=== PATIENT | female | born 1970 | race Caucasian/White ===

== ENCOUNTER 2017-06-29 06:25 | Day surgery (SDC) | payer OTHER ==
[~2017-06-29 06:25] MED LIST: IRON1 TA1 PO
[2017-06-29] MEDS ORDERED: COLACE100 MG PO (09:42)
[2017-06-29] MEDS ORDERED: PERCOCET 5-3251 EACH PO (09:42)
== END 2017-06-29 15:35 | disposition home or self-care (01) ==
LOC: CIR.AMB 06:25
DX: K64.8 Other hemorrhoids (principal); K64.4 Residual hemorrhoidal skin tags

== ENCOUNTER → 2020-01-07 | Outpatient (CLI) | payer OTHER ==
[~2020-01-07] MED LIST changes: +COLACE100 MG PO; +PERCOCET 5-3251 EACH PO
== END | disposition home or self-care (01) ==
LOC: MAMO-SONO 09:15 → RAD 10:04
PROVIDERS: ATTEND Physical Medicine & Rehabilitation
DX: M75.31 Calcific tendinitis of right shoulder (principal); M75.111 Incomplete rotator cuff tear or rupture of right shoulder, not specified as traumatic; M54.2 Cervicalgia